=== PATIENT | female | born 1990 | race Caucasian/White ===

== ENCOUNTER → 2016-10-02 | Outpatient (CLI) | payer OTHER ==
[~2016-10-02] MED LIST: CALNTAB PO; IBUP-232 PO
== END ==
LOC: HPND 14:00
PROVIDERS: ATTEND Family Medicine
DX: O35.1XX0 Maternal care for (suspected) chromosomal abnormality in fetus, not applicable or unspecified (principal)
CPT/HCPCS: 76816

== ENCOUNTER 2016-11-22 06:52 | Inpatient (IN) | payer OTHER ==
[2016-11-22] VITALS (61 sets, daily range): BP systolic 100–141; BP diastolic 49–100; PULSE 74–134; RESP 16–20; TEMP 97.3–98.4
[~2016-11-22 06:52] MED LIST changes: -IBUP-232 PO
[2016-11-22] MEDS ORDERED: OXYTOCIN 30 UNITS-500ML PREMIX 500 ML IV ONE (07:30)
[2016-11-22] MEDS ORDERED: SODIUM CHLORID 0.9% 500 ML INJ 500 ML IV PRN (07:30)
[2016-11-22] MEDS ORDERED: CITRIC ACID-SODIUM CITRATE LIQ 30 ML UDC PO SCH (07:30)
[2016-11-22] MEDS ORDERED: ONDANSETRON HCL 4 MG/2 ML VIAL IV PRN (07:30)
[2016-11-22] MEDS ORDERED: LIDOCAINE HCL 1% 50 ML VIAL INFIL PRN (07:30)
[2016-11-22] MEDS ORDERED: MINERAL OIL 10 ML VIAL TOPICAL PRN (07:30)
[2016-11-22] MEDS ORDERED: LIDOCAINE HCL 1% 50 ML VIAL I-DERMAL PRN (07:30)
--- NOTE | 2016-11-22 07:46 | PD ---
HPI Chief Complaint Contractions Date Seen: Nov 22, 2016 (Jaylin Waddell MD R1) Travel History International Travel<30 Days: No Contact w/Intl Traveler<30Days: No Known Affected Area: No (Jaylin Waddell MD) History of Present Illness HPI Patient is a very pleasant 26 year old female at 39/5 weeks gestation based on LMP of 02/18/2016 that presents to the [facility] ED with a chief complaint of contractions that began at 03:30 a.m. this morning. The contractions are irregular and come every 2-5 minutes and sometimes every 10 minutes. Patient states that she had a bloody show at 6:30 AM. yesterday morning. She denies loss or leakage of fluid and vaginal bleeding. Patient also denies fever, right upper quadrant abdominal pain, headache, blurry vision, spots in her vision, or markedly increased pedal edema. She is a patient of Dr. Christiano Brar at the [facility]. All her labs have been negative or within normal limits. She is GBS negative. Para: 2 : 4 Miscarriage: 1 (Jaylin Waddell MD) History Past Medical History Medical History: Denies Significant Hx (Jaylin Waddell MD) Obstetric History Obstetric History - First : miscarriage at about 12 weeks - Second full term - Third full term (Jaylin Waddell MD) Past Surgical History Surgical History: No Previous Surgery (Jaylin Waddell MD) Family History Narrative Family History - Mother: healthy - Father: in 2010 due to cardiomegaly and multiple organ failure, PUD - 1 brother: healthy (Jaylin Waddell MD) Social History Alcohol Use: No Tobacco Use: Yes (half pack per day 10 years, last cigarette was this morning before she came to the ED) Substance Abuse: No (Jaylin Waddell MD) Allergies-Medications (Allergen,Severity, Reaction): Coded Allergies: No Known Allergies (Verified , 11/22/16) Home Meds Active Scripts Vitamin (Calna)1 Tab Tab1 Tab PO DAILY #30 Prov:Christiano Brar MD 06/02/16 Review of Systems General / Constitutional: No: Fever, Chills Eyes: No: Blurred Vision, Visual changes HENT: No: Headaches Cardiovascular: No: Chest Pain or Discomfort Respiratory: No: Short of Breath Gastrointestinal: No: Nausea, Vomiting Genitourinary: No: Dysuria, Discharge, Vaginal Bleeding (EkoJaylin MD R1) Physical Exam Narrative GENERAL: Well-nourished, well-developed patient. SKIN: Warm and dry. HEAD: Normocephalic and atraumatic. EYES: No scleral icterus. No injection or drainage. ENT: No nasal drainage noted. Mucous membranes pink. Airway patent. NECK: Supple, trachea midline. No JVD. CARDIOVASCULAR: Regular rate and rhythm without murmurs, gallops, or rubs. RESPIRATORY: Breath sounds equal bilaterally. No accessory muscle use. ABDOMEN/GI: Abdomen soft, non-tender, bowel sounds present, no rebound, no guarding Gravid to 40 weeks size GENITOURINARY: External Genitalia: intact and normal in appearance Cervix: Anterior, mid position Dilatation: 5 cm Effacement: 70% Station: -1 Presentation: Vertex Membranes: Intact, bulging Uterine Contractions:, Every 2-3 minutes FHT's: Category: 1 Baseline: 145 Reactive: Reactive up to 175 Variability: Moderate Decels: Initially, 2 questionable late decelerations with spontaneous resolution EXTREMITIES: No cyanosis, minimal 1+ edema. BACK: Nontender without obvious deformity. No CVA tenderness. NEUROLOGICAL: Awake and alert. Motor and sensory grossly within normal limits. Five out of 5 muscle strength in all muscle groups. Normal speech. (Jaylin Waddell MD R1) Data Data Vital Signs Reviewed: Yes Orders Ob (2e) Additional Admit Info (11/22/16 07:27) Admit To Inpatient (11/22/16 ) Code Status (11/22/16 07:30) Vital Signs (Adult) .Per protocol (11/22/16 07:30) Activity Oob Ad Emma (11/22/16 07:30) Heart (11/22/16 07:30) Amnioinfusion (11/22/16 07:30) Urinary Catheter Management .ONCE (11/22/16 07:30) Diet Liquid (11/22/16 Breakfast) Lactated Ringer's 1000 Ml Inj (Lr 1000 M (11/22/16 07:30) Lactated Ringer's 1000 Ml Inj (Lr 1000 M (4/29/17 07:30) Sodium Chlorid 0.9% 500 Ml Inj (Ns 500 M (11/22/16 07:30) Sodium Chlor 0.9% 1000 Ml Inj (Ns 1000 M (11/22/16 07:50) Lidocaine 1% Inj (50 Ml) (Xylocaine 1% I (11/22/16 07:30) Citric Acid-Sodium Citrate Liq (Bicitra (11/22/16 07:30) Ondansetron Inj (Zofran Inj) (11/22/16 07:30) Fentanyl Inj (Fentanyl Inj) (11/22/16 07:30) Fentanyl Inj (Fentanyl Inj) (11/22/16 07:30) Complete Blood Count With Diff (11/22/16 07:30) Hold Clot (11/22/16 07:30) Abo/Rh Blood Type (11/22/16 07:30) Urinalysis - C+S If Indicated (11/22/16 07:30) Resp Oxygen Non Rebreathe Mask (11/22/16 ) ^ Epidural / Intrathecal Infus (11/22/16 07:30) Oxytocin 30 Units-500ml Premix (Pitocin (11/22/16 07:30) Lidocaine 1% Inj (50 Ml) (Xylocaine 1% I (11/22/16 07:30) Light Mineral Oil (Muri-Lube Oil) (11/22/16 07:30) Inpatient Certification (11/22/16 ) Comprehensive Metabolic Panel (11/22/16 07:30) Protein Creat Ratio, Random Ur (11/22/16 07:36) (Eko,Jaylin Bella MD R1) [facility] Medical Record Reviewed: Yes Interpretation(s) 26-year-old at 39/5 weeks gestation presents in active labor Plan Intrauterine - tracing category 1, reassuring -Vaginal exam: /-1, bulging bag -GBS negative -Plan is to admit to L&D -Expect vaginal delivery -Patient would like an epidural -Due to elevated blood pressures at 148/92 and 146/95, will check CMP and urine protein-creatinine ratio -Patient does not have a history of preeclampsia and all her blood pressures at her visit have been within normal limits -Will monitor closely Discussed with Drs. Bernardo Kaufman, PGY 2 (Jaylin Waddell MD R1) Attending Attestation Patient seen and evaluated with resident under direct supervision, agree with assessment and plan. (Tomy Torres MD) Jaylin Waddell MD R1 Nov 22, 2016 07:46 Tomy Torres MD Nov 22, 2016 08:43
[2016-11-22] MEDS ORDERED: SODIUM CHLOR 0.9% 1000 ML INJ 1,000 ML IV PRN (07:50)
--- NOTE | 2016-11-22 08:08 | HHI.HP ---
HPI Chief Complaint Contractions Date Seen: Nov 22, 2016 (Jaylin Waddell MD R1) Travel History International Travel<30 Days: No Contact w/Intl Traveler<30Days: No Known Affected Area: No (Jaylin Waddell MD) History of Present Illness HPI Patient is a very pleasant 26 year old female at 39/5 weeks gestation based on LMP of 02/18/2016 that presents to the [facility] ED with a chief complaint of contractions that began at 03:30 a.m. this morning. The contractions are irregular and come every 2-5 minutes and sometimes every 10 minutes. Patient states that she had a bloody show at 6:30 AM. yesterday morning. She denies loss or leakage of fluid and vaginal bleeding. Patient also denies fever, right upper quadrant abdominal pain, headache, blurry vision, spots in her vision, or markedly increased pedal edema. She is a patient of Dr. Christiano Brar at the [facility] [[email or web address] All her labs have been negative or within normal limits. She is GBS negative. Patient is expecting a boy and she is very excited. She would like an epidural. Para: 2 : 4 Miscarriage: 1 (Jaylin Waddell MD) History Past Medical History Medical History: Denies Significant Hx (Jaylin Waddell MD) Obstetric History Obstetric History - First : miscarriage at about 12 weeks - Second full term - Third full term (Jaylin Waddell MD) Past Surgical History Surgical History: No Previous Surgery (Jaylin Waddell MD) Family History Narrative Family History - Mother: healthy - Father: in 2010 due to cardiomegaly and multiple organ failure, PUD - 1 brother: healthy (Jaylin Waddell MD) Social History Alcohol Use: No Tobacco Use: Yes (half pack per day 10 years, last cigarette was this morning before she came to the ED) Substance Abuse: No (Jaylin Waddell MD) Allergies-Medications (Allergen,Severity, Reaction): Coded Allergies: No Known Allergies (Verified , 11/22/16) Home Meds Active Scripts Vitamin (Calna)1 Tab Tab1 Tab PO DAILY #30 Prov:Christiano Brar MD 06/02/16 Review of Systems General / Constitutional: No: Fever, Chills Eyes: No: Blurred Vision, Visual changes HENT: No: Headaches Cardiovascular: No: Chest Pain or Discomfort Respiratory: No: Short of Breath Gastrointestinal: No: Nausea, Vomiting Genitourinary: No: Dysuria, Discharge, Vaginal Bleeding (EkoJaylin MD R1) Physical Exam Vital Signs Date Time Temp Pulse Resp B/P Pulse Ox O2 Delivery O2 Flow Rate FiO2 11/22/16 07:58 16 11/22/16 07:56 87 132/73 Narrative GENERAL: Well-nourished, well-developed patient. SKIN: Warm and dry. HEAD: Normocephalic and atraumatic. EYES: No scleral icterus. No injection or drainage. ENT: No nasal drainage noted. Mucous membranes pink. Airway patent. NECK: Supple, trachea midline. No JVD. CARDIOVASCULAR: Regular rate and rhythm without murmurs, gallops, or rubs. RESPIRATORY: Breath sounds equal bilaterally. No accessory muscle use. ABDOMEN/GI: Abdomen soft, non-tender, bowel sounds present, no rebound, no guarding Gravid to 40 weeks size GENITOURINARY: External Genitalia: intact and normal in appearance Cervix: Anterior, mid position Dilatation: 5 cm Effacement: 70% Station: -1 Presentation: Vertex Membranes: Intact, bulging Uterine Contractions:, Every 2-3 minutes FHT's: Category: 1 Baseline: 145 Reactive: Reactive up to 175 Variability: Moderate Decels: Initially, 2 questionable late decelerations with spontaneous resolution EXTREMITIES: No cyanosis, minimal 1+ edema. BACK: Nontender without obvious deformity. No CVA tenderness. NEUROLOGICAL: Awake and alert. Motor and sensory grossly within normal limits. Five out of 5 muscle strength in all muscle groups. Normal speech. (JosesitooJaylin MD R1) Data Data Vital Signs Reviewed: Yes Orders Ob (2e) Additional Admit Info (11/22/16 07:27) Admit To Inpatient (11/22/16 ) Code Status (11/22/16 07:30) Vital Signs (Adult) .Per protocol (11/22/16 07:30) Activity Oob Ad Emma (11/22/16 07:30) Heart (11/22/16 07:30) Amnioinfusion (11/22/16 07:30) Urinary Catheter Management .ONCE (11/22/16 07:30) Diet Liquid (11/22/16 Breakfast) Lactated Ringer's 1000 Ml Inj (Lr 1000 M (11/22/16 07:30) Lactated Ringer's 1000 Ml Inj (Lr 1000 M (11/22/16 07:30) Sodium Chlorid 0.9% 500 Ml Inj (Ns 500 M (11/22/16 07:30) Sodium Chlor 0.9% 1000 Ml Inj (Ns 1000 M (11/22/16 07:50) Lidocaine 1% Inj (50 Ml) (Xylocaine 1% I (11/22/16 07:30) Citric Acid-Sodium Citrate Liq (Bicitra (11/22/16 07:30) Ondansetron Inj (Zofran Inj) (11/22/16 07:30) Fentanyl Inj (Fentanyl Inj) (11/22/16 07:30) Fentanyl Inj (Fentanyl Inj) (11/22/16 07:30) Complete Blood Count With Diff (11/22/16 07:30) Hold Clot (11/22/16 07:30) Abo/Rh Blood Type (11/22/16 07:30) Urinalysis - C+S If Indicated (11/22/16 07:30) Resp Oxygen Non Rebreathe Mask (11/22/16 ) ^ Epidural / Intrathecal Infus (11/22/16 07:30) Oxytocin 30 Units-500ml Premix (Pitocin (11/22/16 07:30) Lidocaine 1% Inj (50 Ml) (Xylocaine 1% I (11/22/16 07:30) Light Mineral Oil (Muri-Lube Oil) (11/22/16 07:30) Inpatient Certification (11/22/16 ) Comprehensive Metabolic Panel (11/22/16 07:30) Protein Creat Ratio, Random Ur (11/22/16 07:36) (Eko,Jaylin U R1) Assessment/Plan Assessment and Plan 26-year-old at 39/5 weeks gestation presents in active labor, GBS negative Intrauterine - tracing category 1, reassuring -Vaginal exam: /-1, bulging bag -GBS negative -Plan is to admit to L&D -Expect vaginal delivery -Patient would like an epidural -Due to elevated blood pressures at 148/92 and 146/95, will check CMP and urine protein-creatinine ratio -Patient does not have a history of preeclampsia and all her blood pressures at her visit have been within normal limits -Will monitor closely Discussed with Drs. Torres and Herson Kaufman, PGY 2 Discharge Planning Expect discharge in 2-3 days (Jaylin Waddell MD R1) Attending Attestation Patient seen and evaluated with resident under direct supervision, agree with assessment and plan. (Tomy Torres MD) Jaylin Waddell MD R1 Nov 22, 2016 08:08 Tomy Torres MD Nov 22, 2016 08:44
[2016-11-22] MEDS ORDERED: fentaNYL 2MCG-BUPIV 0.125% INJ 100 ML ONE (08:11)
[2016-11-22 08:19] LABS: AUTOMATED NEUTROPHIL # 11.9 TH/MM3 (1.8-7.7); BASOPHIL % 0.3 % (0.0-2.0); EOSINOPHIL # 0.1 TH/MM3 (0-0.4); EOSINOPHIL % 0.7 % (0.0-4.0); HEMATOCRIT 36.4 % (35.0-46.0); HEMO FLAGS DIFF FINAL; LYMPH % 15.4 % (9.0-44.0); LYMPHOCYTE # 2.3 TH/MM3 (1.0-4.8); MEAN CELL VOLUME 90.8 FL (80.0-100.0); MEAN CORPUSCULAR HEMOGLOBIN 31.2 PG (27.0-34.0); MEAN CORPUSCULAR HGB CONC 34.4 % (32.0-36.0); MONO % 5.3 % (0.0-8.0); NEUT % 78.3 % (16.0-70.0); PLATELET COUNT 207 TH/MM3 (150-450); RED BLOOD COUNT 4.01 MIL/MM3 (4.00-5.30); RED CELL DISTRIBUTION WIDTH 13.5 % (11.6-17.2); WHITE BLOOD COUNT 15.2 TH/MM3 (4.0-11.0)
[2016-11-22 08:32] LABS: BACTERIA, URINE RARE /hpf; BLOOD, URINE MOD (NEG); COMMENT (UR) CULT NOT INDICATED; CULTURE IF INDICATED CULT NOT INDICATED; GLUCOSE,URINE NEG (NEG); KETONE, URINE NEG (NEG); MUCUS URINE FEW /lpf (OCC); NITRITE,URINE NEG (NEG); SQUAMOUS EPITHELIAL CELL URINE 1 /hpf (0-5); URINE COLOR LIGHT-YELLOW (YELLW/STRAW)
[2016-11-22 08:35] LABS: ALKALINE PHOSPHATASE 140 U/L (45-117); ALT (GPT) 17 U/L (10-53); ANION GAP 9 MEQ/L (5-15); AST (GOT) 15 U/L (15-37); BICARBONATE 23.1 MEQ/L (21.0-32.0); BLOOD UREA NITROGEN 4 MG/DL (7-18); CHLORIDE 106 MEQ/L (98-107); GLOMERULAR FILTRATION RATE 158 ML/MIN (>89); POTASSIUM 3.7 MEQ/L (3.5-5.1); SODIUM (NA) 138 MEQ/L (136-145); TOTAL BILIRUBIN ADULT 0.3 MG/DL (0.2-1.0)
[2016-11-22] MEDS: LACTATED RINGER'S 1000 ML INJ 1,000 ML IV PRN ×2 (08:39→10:52)
[2016-11-22] MEDS: LACTATED RINGER'S 1000 ML INJ 1,000 ML IV SCH ×2 (08:40→22:49)
[2016-11-22] MEDS ORDERED: ePHEDrine/NS 25 MG/5 ML SYR ONE (09:23)
--- NOTE | 2016-11-22 09:49 | PD.LABORPN ---
Subjective Subjective Patient resting comfortably in bed. Epidural in place, patient states her pain is better controlled now and she is much more comfortable. Patient was made aware of AROM procedure to augment labor and agreed. AROM was successful, fluids were noted to be meconium stained. Objective Vital Signs Vital Signs Date Time Temp Pulse Resp B/P Pulse Ox O2 Delivery O2 Flow Rate FiO2 11/22/16 09:20 95 11/22/16 09:16 91 11/22/16 09:16 109/49 11/22/16 09:15 97 11/22/16 09:13 18 11/22/16 09:10 91 122/67 11/22/16 09:10 99 11/22/16 09:06 92 121/65 11/22/16 09:05 86 11/22/16 09:04 91 125/72 11/22/16 09:02 98 128/74 11/22/16 09:00 92 11/22/16 09:00 18 11/22/16 09:00 93 126/72 11/22/16 08:58 98 131/73 11/22/16 08:55 82 11/22/16 08:55 88 140/74 11/22/16 08:53 83 11/22/16 08:53 140/85 11/22/16 08:50 93 11/22/16 08:00 97.3 11/22/16 07:58 16 11/22/16 07:56 87 132/73 Objective Pelvic Exam: Cervix: midposition Dilatation: 5cm Effacement: 90% Station: -1 Presentation: vertex Membranes: now ruptured s/p AROM Uterine Contractions: q2-3 minutes on tocometer FHT's: Category: II Baseline: 130s Reactive: yes Variability: mod Decels: late deceleration noted, resolved s/p maternal repositioning and administration of oxygen Assessment/Plan Problem List: (1) Elevated blood pressure affecting in third trimester, antepartum (2) Intrauterine Assessment and Plan Patient is a 26-year-old very pleasant at 39/5 weeks gestation admitted to L&D in active labor. Intrauterine , elevated blood pressures - Category II tracing - Contractions q2-3 minutes on tocometer - Cervix 5/90/-1, vertex presentation, s/p AROM - GBS negative - Epidural in place - Continue expectant management - Patient had elevated blood pressures at 148/92 and 146/95 upon presentation, BPs are now within normal limits - Patient does not have a history of preeclampsia and all of her blood pressures throughout her visits were within normal limits - CBC unremarkable, platelets within normal limits, liver enzymes normal - Continue to monitor blood pressures Christiano Brar MD R1 Nov 22, 2016 09:49
--- NOTE | 2016-11-22 10:38 | PD.LABORPN ---
Subjective Subjective Changing shifts Dr. Goodwin coming on duty; chart reviewed Patient is a 26-year-old 4 para 2 at 39 weeks and 5 days care with the [facility] course is significant for negative group B strep Patient presently has an epidural and is comfortable. 5 cm at the time of admission Objective Vital Signs Blood pressures 130s over 70s hemoglobin 12.5 hematocrit 36.4 platelet 207,000 urinalysis negative for protein S GOT of 15 SGPT of 17 Artificial rupture of membranes at 9:30 AM Meconium-stained amniotic fluid Vital Signs Date Time Temp Pulse Resp B/P Pulse Ox O2 Delivery O2 Flow Rate FiO2 11/22/16 10:01 94 112/62 11/22/16 10:00 91 11/22/16 10:00 18 11/22/16 10:00 16 11/22/16 09:55 106/89 11/22/16 09:55 87 11/22/16 09:55 98 11/22/16 09:51 114/63 11/22/16 09:51 93 11/22/16 09:50 102 11/22/16 09:46 88 11/22/16 09:46 132/82 11/22/16 09:45 86 11/22/16 09:44 18 11/22/16 09:41 84 137/67 11/22/16 09:40 90 11/22/16 09:36 84 139/72 11/22/16 09:35 94 11/22/16 09:32 81 127/63 11/22/16 09:30 75 11/22/16 09:25 74 11/22/16 09:25 80 11/22/16 09:25 104/59 11/22/16 09:21 102/52 11/22/16 09:21 84 11/22/16 09:20 95 11/22/16 09:16 91 11/22/16 09:16 109/49 11/22/16 09:15 97 11/22/16 09:13 18 11/22/16 09:10 91 122/67 11/22/16 09:10 99 11/22/16 09:06 92 121/65 11/22/16 09:05 86 11/22/16 09:04 91 125/72 11/22/16 09:02 98 128/74 11/22/16 09:00 92 11/22/16 09:00 18 11/22/16 09:00 93 126/72 11/22/16 08:58 98 131/73 11/22/16 08:55 82 11/22/16 08:55 88 140/74 11/22/16 08:53 83 11/22/16 08:53 140/85 11/22/16 08:50 93 11/22/16 08:00 97.3 11/22/16 07:58 16 11/22/16 07:56 87 132/73 Objective Pelvic Exam: Cervix: [-] Midline Dilatation: [-] 7 cm Effacement: [-] 90% effaced Station: [-] -1 station Presentation: [-] Vertex Membranes: ruptured] Uterine Contractions: [-] Irregular contractions FHT's: Category: [-] 2 with variable decelerations Baseline: [-] 130 Reactive: [-] + Positive accelerations with scalp stimulation Variability: [-] Moderate hnni-[id number] variability Decels: [-] Occasional variable deceleration Assessment/Plan Problem List: (1) Elevated blood pressure affecting in third trimester, antepartum (2) Intrauterine Assessment and Plan Assessment; 26-year-old at 39 weeks and 5 days in active labor Epidural anesthesia Meconium-stained amniotic fluid Variable decelerations Positive accelerations and moderate nyrr-dq-jigl variability Plan; IUPC placed to better evaluate the strength of her contractions Also IUPC placed to infuse fluid for amnioinfusion Positional changes IV fluid hydration O2 Reevaluation and monitor Anticipate second stage of labor Bhavna Jefferson MD Nov 22, 2016 10:38
[2016-11-22] MEDS ORDERED: fentaNYL 2MCG-BUPIV 0.125% 100 ML EPIDURAL SCH (10:45)
[2016-11-22] MEDS ORDERED: DO NOT ADMINISTER ANTICOAGULANTS PRN (10:45)
[2016-11-22] MEDS ORDERED: ePHEDrine/NS 25 MG/5 ML SYR IV PRN (10:45)
[2016-11-22] MEDS ORDERED: NO SYSTEM NARCOTICS PRN (10:45)
[2016-11-22] MEDS ORDERED: ACETAMINOPHEN 325 MG TAB PO PRN (11:30)
[2016-11-22] MEDS ORDERED: WITCH HAZEL 50%/GLYCERIN 12.5% 40 PAD JAR TOPICAL PRN (11:30)
[2016-11-22] MEDS ORDERED: BENZOCAINE 20% TOPICAL SPRAY 60 ML CAN TOPICAL PRN (11:30)
[2016-11-22] MEDS ORDERED: SODIUM CHLORIDE 0.9% FLUSH 10 ML FLUSH IV FLUSH PRN (11:30)
[2016-11-22] MEDS ORDERED: SODIUM CHLORIDE 0.9% FLUSH 10 ML FLUSH IV FLUSH SCH (11:30)
--- NOTE | 2016-11-22 11:33 | PD.OB.DELI ---
Delivery Date: Nov 22, 2016 Anesthesia: Epidural Episiotomy: None Vaginal Delivery: Normal, Spontaneous Presentation: Occiput anterior Nuchal Cord: None Delayed cord clamping (45 sec): No : Male One Minute : 9 Five Minute : 9 Weight: 3305 grams Placenta: Spontaneous delivery, Intact, 3 vessel cord Laceration: No lacerations Additional Information Patient is a very pleasant now delivered at 39/5 weeks gestation via spontaneous vaginal delivery over an intact perineum. Apgars were 9/9. weight 3305 grams. Placenta delivered spontaneously intact with 3-vessel cord. No vaginal lacerations. EBL < 500 cc. Christiano Brar MD R1 Nov 22, 2016 11:33
[2016-11-22] MEDS ORDERED: ALUMINUM/MAGNESIUM/SIMETH 30 ML CUP PO PRN (12:00)
[2016-11-22] MEDS ORDERED: oxyCODONE/ACETAMINOPHEN 5 MG/325 MG TAB PO PRN (12:00)
[2016-11-22] MEDS ORDERED: IBUPROFEN 600 MG TAB PO PRN (12:00)
[2016-11-22] MEDS ORDERED: DOCUSATE SODIUM 50 MG/SENNA 8.6 MG TAB PO PRN (12:00)
[2016-11-22] MEDS ORDERED: ONDANSETRON ODT 4 MG TAB PO PRN (12:00)
[2016-11-22] MEDS ORDERED: MEASLES, MUMPS, RUBELLA VACCINE 0.5 ML VIAL SQ ONE (16:00)
[2016-11-22] MEDS ORDERED: DIPHTH/TETANUS/ACEL PERTUSSIS (BOOSTER) 0.5 ML VIAL/PFS IM ONE (16:00)
[2016-11-22] MEDS ORDERED: ZOLPIDEM TARTRATE 5 MG TAB PO PRN (21:00)
[2016-11-23] MEDS: LACTATED RINGER'S 1000 ML INJ 1,000 ML IV SCH (07:19)
[2016-11-23 08:00] VITALS: BP 118/84; PULSE 73; RESP 16; TEMP 97.3
--- NOTE | 2016-11-23 12:14 | HHI.OB ---
Subjective Post Day: 1 Remarks Ms Coyle is a 26 yo who is PPD 1 from (11/22 at 1119). Patient has been afebrile and normotensive. Ms. Coyle reports her pain is controlled at this time. Patient ambulating normally. Patient reports light vaginal bleeding. Patient does not report shortness of breath or leg swelling. No dysuria. Patient has had a bowel movement. (Hunter Rosario MD R2) Remarks Patient seen and evaluated with resident under direct supervision, agree with assessment and plan. (Tomy Torres MD) Objective Vitals/I&O Vital Signs Date Time Temp Pulse Resp B/P Pulse Ox O2 Delivery O2 Flow Rate FiO2 11/23/16 08:00 97.3 73 16 118/84 11/22/16 13:40 98.4 96 18 114/69 11/22/16 12:38 95 110/61 11/22/16 12:34 89 127/100 11/22/16 12:30 18 11/22/16 12:16 97 131/73 11/22/16 12:15 18 Objective Remarks GENERAL: Well-nourished, well-developed patient. CARDIOVASCULAR: Regular rate and rhythm without murmurs, gallops, or rubs. RESPIRATORY: Breath sounds equal bilaterally. No accessory muscle use. ABDOMEN/GI: Abdomen soft, non-tender. Fundus: Firm, non-tender at umbilicus. GENITOURINARY: Light to moderate bleeding. EXTREMITIES: No cyanosis or edema, non-tender, without signs of DVT. Medications and IVs Current Medications Medications (Trade) Dose Ordered Sig/Tony Route Start Time Stop Time Status Last Admin Lactated Ringer's 1,000 ml @ 125 mls/hr Q8H IV 11/22/16 07:30 11/22/16 08:40 Lactated Ringer's 1,000 ml @ 3,000 mls/hr Q20M PRN IV 11/22/16 07:30 11/22/16 10:52 (NS 1000 ml Inj) 1,000 ml @ 100 mls/hr Q10H PRN IV 11/22/16 07:50 (fentaNYL INJ) 50 mcg Q1H PRN IV PUSH 11/22/16 07:30 (fentaNYL INJ) 100 mcg Q1H PRN IV PUSH 11/22/16 07:30 (NS Flush) 2 ml BID IV FLUSH 11/22/16 11:30 (NS Flush) 2 ml UNSCH PRN IV FLUSH 11/22/16 11:30 (Tylenol) 650 mg Q4H PRN PO 11/22/16 11:30 (Motrin) 600 mg Q6H PRN PO 11/22/16 12:00 11/22/16 20:50 (Percocet 5-325 Mg) 1 tab Q4H PRN PO 11/22/16 12:00 (Americaine 20% Top Spr) 1 spray Q4H PRN TOPICAL 11/22/16 11:30 (Tucks Pads) 1 applic QID PRN TOPICAL 11/22/16 11:30 (Elinor-Colace) 2 tab Q12H PRN PO 11/22/16 12:00 (Ambien) 5 mg HS PRN PO 11/22/16 21:00 (Mag-Al Plus Susp Liq) 15 ml Q8H PRN PO 11/22/16 12:00 (Zofran Odt) 4 mg Q6H PRN PO 11/22/16 12:00 (Hunter Rosario MD R2) Assessment/Plan Problem List: (1) Elevated blood pressure affecting in third trimester, antepartum (2) Intrauterine Assessment and Plan 26 yo who is PPD 1 from (11/22 at 1119) Routine care -PRN Motrin/Percocet -Continue to encourage ambulation -Continue to encourage -Continue to monitor VS, vaginal bleeding -Encourage ; provide assistance as needed Continue stool softener Discharge Planning Expect discharge in 2-3 days (Hunter Rosario MD R2) Hunter Rosario MD R2 Nov 23, 2016 12:14 Tomy Torres MD November 24, 2016 07:48
--- NOTE | 2016-11-23 12:15 | HHI.DCPOC ---
Discharge Care Plan Diagnosis: (1) care and examination Report Symptoms to Your Doctor -Temperate above 100.5 degrees -Unusual pain or calf pain -Increased vaginal bleeding -Painful or difficulty urinating -Feelings of extreme sadness or anxiety after 2 weeks Goals to Promote Your Health * To prevent worsening of your condition and complications * To maintain your health at the optimal level Directions to Meet Your Goals Take your medications as prescribed Follow your dietary instruction Follow activity as directed Ensure plenty of rest for recovery Drink fluids for hydration Keep your appointments as scheduled Take your immunizations and boosters as scheduled If your symptoms worsen call your PCP, if no PCP go to Urgent Care Center or Emergency Room Smoking is Dangerous to Your Health. Avoid second hand smoke Call the 24-hour crisis hotline for domestic abuse at Hunter Rosario MD R2 Nov 23, 2016 12:15
[2016-11-23] MEDS ORDERED: IBUP-232 PO (12:16)
== END 2016-11-23 22:50 | disposition home or self-care (01) | DRG 775 ==
LOC: HOBED 06:52 → H2EB 07:28 → H1EA 12:48
PROVIDERS: ADMIT Obstetrics & Gynecology; ATTEND Obstetrics & Gynecology
PROC: 10E0XZZ Delivery of Products of Conception, External Approach (ICD-10-PCS; principal; 2016-11-22)
PROC: 10907ZC Drainage of Amniotic Fluid, Therapeutic from Products of Conception, Via Natural or Artificial Opening (ICD-10-PCS; 2016-11-22)
PROC: 00HU33Z Insertion of Infusion Device into Spinal Canal, Percutaneous Approach (ICD-10-PCS; 2016-11-22)
PROC: 3E0R3CZ (ICD-10-PCS; 2016-11-22)
DX: O76 Abnormality in fetal heart rate and rhythm complicating labor and delivery (principal); R03.0 Elevated blood-pressure reading, without diagnosis of hypertension; O26.893 Other specified pregnancy related conditions, third trimester; O77.0 Labor and delivery complicated by meconium in amniotic fluid; Z37.0 Single live birth; Z3A.39 39 weeks gestation of pregnancy
CPT/HCPCS: 80053; 81001; 82570; 84156; 85025; 90715; 99285; J2590; J7120